=== PATIENT | female | born 1955 | race Caucasian/White ===

== ENCOUNTER 2017-11-14 14:21 | Inpatient (IN) | payer BC ==
[~2017-11-14 14:21] MED LIST: DIPHENHYDRAMINE HCL 50 MG/ML VIAL IVP ONE; FENTANYL PF 100MCG/2ML VIAL IV ONE; KETOROLAC 30 MG/ML VIAL IVP ONE; LIDOCAINE 2% MDV (20MG/ML) 20ML VIAL IV ONE; MIDAZOLAM HCL 2MG/2ML VIAL IV ONE; PROPOFOL 10 MG/ML VIAL IV ONE
[2017-11-14 15:48] LABS: BASO % 1.4 % (0-6); EOS % 4.4 % (0-6); GRAN % 60.7 % (47-80); HEMATOCRIT 36.1 % (35.0-47.0); HEMOGLOBIN 11.6 gm/dl (11.6-16.0); LYMPH % 24.4 % (16-45); MEAN CELL VOLUME 93.3 fl (81-97); MEAN CORPUSCULAR HGB CONC 32.1 g/dl (32-36); MEAN PLATELET VOLUME 10.4 fl (7.4-10.4); MONO % 9.1 % (0-9); PLATELET COUNT 291 K/uL (130-400); RED BLOOD COUNT 3.87 M/uL (3.80-5.40); RED CELL DISTRIBUTION WIDTH 13.7 % (11.5-14.5); WHITE BLOOD COUNT W/O DIFF 6.3 K/uL (4.2-12.2)
[2017-11-14] MEDS: INCRUSE INH SCH (16:25)
[2017-11-14] MEDS ORDERED: MORPHINE SULFATE 4MG/ML PREFILLED SYRINGE IVP PRN ×2 (17:13)
[2017-11-14] MEDS ORDERED: HYDROCODONE/APAP 5/325MG TABLET PO PRN (17:16)
[2017-11-14 17:59] LABS: ABO GROUP O; ANTIBODY SCREEN POSITIVE (NEGATIVE); RH TYPE POSITIVE
[2017-11-14] MEDS: HYDROCODONE/APAP 5/325MG TABLET PO PRN ×2 (18:05→20:23)
[2017-11-14 18:10] LABS: BLOOD UREA NITROGEN 13 mg/dL (8-23); CREATININE 0.6 mg/dL (0.5-0.9); EST GLOMERULAR FILTRATION RATE > 60 mL/min; GLUCOSE,RANDOM 90 mg/dL (74-109)
[2017-11-14 18:34] LABS: URINE APPEARANCE CLEAR; URINE BILIRUBIN NEGATIVE (NEGATIVE); URINE BLOOD NEGATIVE (NEGATIVE); URINE COLOR YELLOW; URINE GLUCOSE (UA) NEGATIVE (NEGATIVE); URINE KETONE NEGATIVE (NEGATIVE); URINE LEUKOCYTE ESTERASE NEGATIVE (NEGATIVE); URINE NITRITE NEGATIVE (NEGATIVE); URINE PROTEIN NEGATIVE (NEGATIVE)
[2017-11-15] MEDS: HYDROCODONE/APAP 5/325MG TABLET PO PRN (04:08)
[2017-11-15] MEDS ORDERED: RINGERS SOLUTION,LACTATED 1,000 ML IV ONE (11:00)
[2017-11-15] MEDS ORDERED: CELECOXIB 100 MG CAPSULE PO ONE (11:30)
[2017-11-15] MEDS ORDERED: ACETAMINOPHEN 1,000 MG/100 ML BTL IV ONE (11:30)
[2017-11-15] MEDS ORDERED: METOCLOPRAMIDE 10 MG TABLET PO ONE (11:30)
[2017-11-15] MEDS ORDERED: MECLIZINE 25 MG TABLET PO ONE (11:30)
[2017-11-15] MEDS ORDERED: FAMOTIDINE 20MG TABLET PO ONE (11:30)
[2017-11-15] MEDS: PATIENT OWN MED: ATORVASTATIN 40 MG PO SCH (11:41)
[2017-11-15] MEDS ORDERED: VANCOMYCIN HCL 1,000 MG in DEXTROSE 5 % IN WATER 250 ML IVPB ONE ×2 (12:00)
[2017-11-15] MEDS ORDERED: HYDROMORPHONE PF 1MG/ML **AMPULE IV ONE (13:01)
[2017-11-15] MEDS ORDERED: HYDROCODONE/APAP 5/325MG TABLET PO PRN ×2 (13:39)
[2017-11-15] MEDS ORDERED: ACETAMINOPHEN 325 MG TAB PO PRN (13:39)
[2017-11-15] MEDS ORDERED: BISACODYL 10 MG SUPP RC PRN (13:39)
[2017-11-15] MEDS ORDERED: KETOROLAC 30 MG/ML VIAL IVP PRN ×2 (13:39)
[2017-11-15] MEDS ORDERED: ZOLPIDEM TARTRATE 5 MG TABLET PO PRN (13:39)
[2017-11-15] MEDS ORDERED: ACETAMINOPHEN W/ CODEINE 300MG/30MG TABLET PO PRN ×2 (13:39)
[2017-11-15] MEDS ORDERED: ACETAMINOPHEN W/ CODEINE 300MG/60MG TABLET PO PRN ×2 (13:39)
[2017-11-15] MEDS ORDERED: HYDROMORPHONE HCL 2 MG/ML VIAL IM PRN ×2 (13:39)
[2017-11-15] MEDS ORDERED: METOCLOPRAMIDE HCL 10 MG/2 ML VIAL IVP PRN (13:39)
[2017-11-15] MEDS ORDERED: DIPHENHYDRAMINE HCL 25 MG CAPSULE PO PRN (13:39)
[2017-11-15] MEDS ORDERED: TRAMADOL HCL 50 MG TABLET PO PRN ×2 (13:39)
[2017-11-15] MEDS ORDERED: ONDANSETRON HCL IV 4 MG/2 ML VIAL IVP PRN (13:39)
[2017-11-15] MEDS ORDERED: AL HYDROX/MAG HYDROX 30ML UD PO PRN (13:39)
[2017-11-15] MEDS ORDERED: NALOXONE 0.4 MG/1 ML VIAL IVP PRN (13:39)
[2017-11-15] MEDS ORDERED: HYDROCODONE/APAP 7.5/325MG TABLET PO PRN ×2 (13:39)
[2017-11-15] MEDS ORDERED: PROMETHAZINE HCL 12.5 MG in 0.9 % SODIUM CHLORIDE 100ML 50 ML IVPB PRN (13:39)
[2017-11-15] MEDS ORDERED: MAGNESIUM HYDROXIDE 30 ML UDC PO PRN (13:39)
[2017-11-15] MEDS ORDERED: DEXTROSE 5 % AND 0.9 % NACL 1,000 ML IV PRN (14:00)
[2017-11-15] MEDS ORDERED: HYDROXYZINE PAMOATE 25 MG CAPSULE PO PRN (16:40)
--- NOTE | 2017-11-15 17:27 | Rehab Evaluation ---
Patient Information - Patient Information Diagnosis: L femoral neck facture Ordered Treatment: PT Evaluate and Treat Status: Initial Evaluation Surgery: Yes Date of Surgery: 11/15/17 Past Medical/Surgical Hx: PAST MEDICAL/SURGICAL HISTORY Past Surgical History hysterectomy, colonoscopy, 2 c-sections PMH - Respiratory Hx Respiratory Disorders Yes Hx Bronchitis Yes Hx Chronic Obstructive Yes: well controlled with inhaler Pulmonary Disease (COPD) Comment: former smoker PMH - Cardiovascular Hx Cardiovascular Disorders No Exercise Tolerance Good Hx Transient Ischemic Attacks Yes: see below (TIA) PMH - Neuro Hx Neurological Disorders Yes Hx Headaches Yes: daily Hx Transient Ischemic Attacks Yes: see below (TIA) Comment: diagnosed with "mini" strokes, recent mri PMH - GI Hx Gastrointestinal Disorders Yes Hx Gastroesophageal Reflux Yes: occassionally takes gaviscon PMH - Hx Genitourinary Disorders No Patient No Comment: s/p hyst PMH - Endocrine Hx Endocrine Disorders No Hx Diabetes No Hx Thyroid Disease No PMH - Musculoskeletal Hx Musculoskeletal Disorders Yes Hx Arthritis Yes Comment: current fracture left hip PMH - Psych Hx Psychiatric Problems No PMH - Hematology/Oncology Hx Hematology/Oncology No Disorders Premorbid Status: Detail (The patient was independent with mobility, hip had been painful since Aug.) Social History: Detail (The patient lives in a one story home with spouse with 3 stairs and no railing at one enterance and 3 or 4 steps with one railing at the front enterance. The patient's bathroom is equipped with a tub/shower combination with no grab bars and a standard toilet with no grab bars. The patient has a quad cane and was vended a walker with wheels. The patient and her were given information on toilet riser seats at a loan closet from [facility] counter caser. Patient's said they were trying to borrow a toilet riser from a relative.) Precautions: [place], Fall, Other (THR precautions.) - Time With Patient Total Time Spent With Patient (Min): 30 Treatment Procedures: Detail (Initial Evaluation) Subjective Information - Subjective Information Per Patient (The patient had no complaints of pain.) Objective Data - Mental Status Patient Orientation: Oriented x3 - Visual Perception Appears within normal limits for therapeutic activities - ROM Not within normal limits (The patient's L hip AROM is within total hip precautions.) - Strength/Tone Not within normal limits (The patient's R LE is generally 4+ to 5/5. The patient 's L LE was not tested due to s/p surgery.) - Bed Mobility Needs Assist (not tested secondary to patient felt she was not ready to sit up. Patient had been on inpatient floor for one hour.) - Transfers Needs Assist (Not assessed) - Sensation Intact (Intact B LE's to light touch.) - Gait Detail (Not assess. Patient did not feel ready to get up.) Therapy Assessment - Therapy Assessment Detail (The patient felt she was not ready to get up but did complete the THR exercises with assistance of PT to complete an ankle pump on the L.) Patient Education - Patient Education Teaching Topic: Exercise/Activity (THR exercises were completed 2-3 reps each including quad sets, hamstring sets, gluteal sets, hip abduction and ankle pumps with assist of PT. Heel slides were reviewed but not completed.), Precautions (THR precautions were reviewed.) Response: Return Demonstration Teaching Method: Discussion Teaching Recipient: Patient, Family Barriers To Learning: Age Related Problem List - Problem List Physical Therapy Problem List: Detail (1) Decreased L LE strength as to be expected following surgery. 2) Nonambulatory on levels and stairs following surgery 3) Assistance with bed mobility and transfers) Goals - Goals Physical Therapy Goals: 1)The patient will be independent with ambulation with appropriate assistive device WBAT on the L LE househod distances. 2) The patient will be independent with bed mobility safely following THR precautions. 3) The patient will be independent with all transfers. 4) The patient will ambulate on 3 steps, WBAT on the L LE with supervision for safety. 5) The patient will be independent with HEP , THR exercise and THR precautions. Prognosis - Prognosis Good (For return to home.) Plan - Plan Physical Therapy Plan: PT 1-2 times a day until all inpatient PT goals have been completed for bed mobility, transfer training, gait training and instruction in HEP and THR precautions.
[2017-11-15] MEDS: INCRUSE INH SCH (17:34)
[2017-11-15] MEDS: ONDANSETRON HCL IV 4 MG/2 ML VIAL IVP ONE ×2 (19:25→22:10)
--- NOTE | 2017-11-15 21:45 | Operative Note ---
DATE OF SURGERY: 11/15/2017 PREOPERATIVE DIAGNOSIS: Left displaced femoral neck fracture. Delayed presentation. POSTOPERATIVE DIAGNOSIS: Left displaced femoral neck fracture. Delayed presentation. OPERATION: Left total hip arthroplasty. SURGEON: Mike Martinez M.D. ANESTHESIA: Spinal. ANESTHESIA PROVIDER: Humberto Miles CRNA COMPLICATIONS: None. BLOOD LOSS: 150 mL. OPERATIVE FINDINGS: Unstable displaced femoral fracture, bone appearance grossly normal. COMPONENTS PLACED: 2 gram Vancomycin, cemented [employer]hew Synergy total hip arthroplasty system size 11 standard offset collared cemented Synergy stem with a 32 +4 mm Oxinium femoral head component, a 50 mm three-hole reflection acetabular shell component with one acetabular screw, two screw caps, a centrally threaded screw cap, and a 35 degree hooded high-crosslinked polyethylene liner. INDICATIONS FOR OPERATION: This is a 61-year-old female who just walked into my office yesterday with complaints of limb length discrepancy and limp and some pain in her thigh and groin area. She had had multiple falls previously, which eventually she related. She had a previous x-ray in August of the pelvis and lateral hip, in which there was no evidence of fracture. However, I took a new x -ray yesterday in the office and it showed a completely displaced femoral neck fracture. The patient does have a history of smoking in the past but quit about 20 years ago, no history of cancers. It is questionable that this may be pathologic, however, there is no gross appearance on the previous x-ray or current x-ray of any osteolytic lesion there and she was scheduled for surgery after being admitted to [facility] last night. I explained to the patient and the patient's family the risks and benefits in great detail for her diagnosis and procedures including but not limited to; infection, nerve injury, vessel injury, persistent pain, persistent numbness and tingling in her hip, periprosthetic fracture, need for resection arthroplasty should the components become infected or loosened, limb length discrepancy, need for anticoagulation to prevent blood clots and risks associated with these medications and need for further procedures and all of her questions were answered, the rehab and course were outlined and she agreed to proceed. PROCEDURE: The patient was brought to the O.R. and placed in the right lateral decubitus position. The left hip and lower extremity were prepped and draped in a sterile fashion, prepped again with ChloraPrep after it was draped. Intraoperative time-out was performed. Next, the hip was re-prepped again with ChloraPrep. A posterior approach was marked over the hip using the incision marking template off the tip of the trochanter and infiltrated with 0.5% Marcaine with Epinephrine in a mini- incision approach. Next, we infiltrated the skin with 0.5% Marcaine with Epinephrine. Skin and subcutaneous tissues were dissected down. The gluteal fascia was split longitudinally. Subgluteal plane was bluntly dissected. A self-retainer brought in. We dissected down to the short external rotators and released them and tagged them with #2 Vicryl. I identified the sciatic nerve and took care to protect the sciatic nerve at all times with the rotators. Next, we incised the capsule, released it superiorly and inferiorly, and dislocated the femoral head. It was obviously mobile at the fracture site, the area was moving freely and dislocated with the neck held on with some periosteum. The head was cut and removed about 1 cm above the lesser trochanter. We sent the head to Pathology. There wasn't any gross appearance at the fracture site of abnormal bone. Next, we inserted the boxed osteotome and then inserted reamers, working in 1 mm increments up to a size 11. We stopped there, broached and 9 and a 10, calcar planed then an 11, had a good fit and we stopped there. Attention was turned to the acetabulum. We released the capsule anteriorly, placed a Cobra retractor there, placed an inferior acetabular retractor, released some of the capsule and labrum around the periphery. We started reaming in 1 mm increments in 45 degrees inclination and 20 degrees of anteversion starting with a 43 mm reamer until we reamed up to our minimum size acetabulum that was available here, a 50 mm acetabulum. Therefore, we reamed to a 49. We initially planned on using a 48, however, that was not available. We then inserted the trial 50 shell with a helicopter guide, impacted down to the medial wall in 45 degrees inclination and 20 degrees of anteversion and it fit nicely. We changed gloves, brought in a clean sheet and irrigated copiously and then impacted down the real three-hole acetabular shell component, again using the helicopter guide in 45 degrees inclination to 20 degrees of anteversion. Next, we drilled the posterior superior central quadrant screw hole, measured for 40 mm screw, inserted the screw and had excellent purchase and compressed the acetabulum down nicely medially to the wall. Next, we placed the trial liner and we a trial reduction and range of motion. The best combination of range of motion, stability and mu-ism of her leg lengths, which was short, over 1 inch prior to surgery, with a standard offset 32 +4 mm high femoral head component. This allowed for flexion to 90, internal rotation to 70 to 80 before the hip would attempt to dislocate against, and symmetric leg lengths with the knee, patella, and heel lining up, and stability with extension in external rotation, good abductor tensioning with inferior anterior distraction in the sizes that we used. Next, we re-dislocated the hip, removed all trial components, and irrigated the acetabular shell copiously. We placed two screw caps, a centrally threaded screw cap and impacted down the real high crosslinked polyethylene liner with the 35 degree mahan in the posterior/superior quadrant. Next, we irrigated the femoral canal. We mixed cement and then placed a cement restrictor distally and injected the cement in 3rd generation cement technique. We removed the suction catheter and then impacted down the real femoral stem, again, in 15 degrees of anteversion until the collar was flush with the medial calcar. We held it there until cement hardened. We cleaned and dried the trunnion and impacted down the real Oxinium femoral head component. We re-reduced the hip. Final range of motion and stability were the same. We irrigated copiously. We repaired the short external rotators to the abductors using #2 running Vicryl stitch. Irrigated again. We closed the gluteal fascia with a running #2 Quill. Previously, we injected the deep capsule , periosteum, gluteal, and abductors with 0.5% Marcaine with Epinephrine, 2 grams of Tranexamic Acid, and Exparel mixture. We closed the skin with 2-0 Vicryl subcutaneous and then reapproximated the skin edges with ZipLine with TinCoBen. Abduction pillows. Post-op x-ray revealed good fit and orientation of components. The patient tolerated the procedures well. No intraoperative complications. All sponge, needle and blade counts were correct. Recovery stable, neurovascularly intact. She will be sent back to the Floor with pain control, IV antibiotics, and likely discharged home tomorrow. cc: Primary Care Doctor JOB NUMBER: [id number] MTDD
[2017-11-15] MEDS: DOCUSATE SODIUM 100 MG CAPSULE PO SCH (22:17)
[2017-11-15] MEDS: FERROUS SULFATE 325 MG TAB PO SCH (22:17)
[2017-11-15] MEDS: VANCOMYCIN HCL 1,000 MG in DEXTROSE 5 % IN WATER 250 ML IVPB SCH ×2 (22:35)
[2017-11-16 06:16] LABS: HEMATOCRIT 31.1 % (35.0-47.0); HEMOGLOBIN 9.9 gm/dl (11.6-16.0)
[2017-11-16] MEDS: FERROUS SULFATE 325 MG TAB PO SCH (09:12)
[2017-11-16] MEDS: DOCUSATE SODIUM 100 MG CAPSULE PO SCH (09:14)
[2017-11-16] MEDS: PATIENT OWN MED: ATORVASTATIN 40 MG PO SCH (09:15)
[2017-11-16] MEDS ORDERED: RIVAROXABAN 10 MG TABLET PO SCH (10:00)
[2017-11-16] MEDS ORDERED: CELECOXIB 100 MG CAPSULE PO SCH (10:00)
--- NOTE | 2017-11-16 11:51 | Physical Therapy Tx Note ---
Physical Therapy Tx Note - Treatment Note Tolerated: Good Total Time Spent With Patient: 50 Physical Therapy Tx Note: Detail (Pt in bed upon arrival, awake/alert, cooperative for therapy. Was nauseated through the night, didn't eat much breakfast, but not nauseated now. Required min assist for L LE to get to sitting at edge of bed, sat for several minutes, not dizzy/lightheaded. Reviewed WOLF precautions for posterior approach. VCs for sit/stand technique, WBAT status, gait w/front wheeled walker. Sit/stand w/SBA to front wheeled walker, ambulated from bedside to PACU doors and back to bedside (about 240 feet total), w/CGA/SBA. VCs for reaching back to bed/seat, min assist for LE's back into bed, used trapeze to scoot up in bed. Performed 10 reps each of ankle pumps, isometric quads, isometric hamstrings, isometric gluts, heel slides , and assisted hip abduction. Discussed tub bench transfers, assistive equipment for dressing, activities she can do at home. Discussed that home therapy will be going over these as well.) Physical Therapy Problem List: Detail (1) Decreased L LE strength as to be expected following surgery. 2) Nonambulatory on levels and stairs following surgery 3) Assistance with bed mobility and transfers) Physical Therapy Goals: 1)The patient will be independent with ambulation with appropriate assistive device WBAT on the L LE househod distances. 2) The patient will be independent with bed mobility safely following THR precautions. 3) The patient will be independent with all transfers. 4) The patient will ambulate on 3 steps, WBAT on the L LE with supervision for safety. 5) The patient will be independent with HEP , THR exercise and THR precautions. Prognosis: Good Physical Therapy Plan: Will see pt this afternoon for stair training and continued review of WOLF precautions and home exercise program.
[2017-11-16] MEDS: VANCOMYCIN HCL 1,000 MG in DEXTROSE 5 % IN WATER 250 ML IVPB SCH ×2 (12:14)
--- NOTE | 2017-11-16 13:13 | Physical Therapy Tx Note ---
Physical Therapy Tx Note - Treatment Note Tolerated: Good Total Time Spent With Patient: 20 Physical Therapy Tx Note: Detail (Pt in bed upon arrival, awake/alert, cooperative for therapy. Independent w/bed mobility w/reminder for WOLF precautions. Sit/stand transfer to front wheeled walker independently, ambulated to bathroom w/SBA, independently transferred off of commode and to sink, out of bathroom. Ambulated from bedside to stairwell, descended/ascended three steps w/VCs for technique and CGA; pt's observed and verbalized good understanding. Ambulated back to bed (total about 100 feet) w/SBA. Discussed truck transfers; pt has already been doing appropriate transfer by ascending into truck backward, lifting w/R LE and hand holds on truck. Demonstrates good understanding of HEP, anticipating home therapy to assist with practical training in home environment.) Physical Therapy Problem List: Detail (1) Decreased L LE strength as to be expected following surgery. 2) Nonambulatory on levels and stairs following surgery 3) Assistance with bed mobility and transfers) Physical Therapy Goals: 1)The patient will be independent with ambulation with appropriate assistive device WBAT on the L LE househod distances - met. 2) The patient will be independent with bed mobility safely following THR precautions - met. 3) The patient will be independent with all transfers - met. 4) The patient will ambulate on 3 steps, WBAT on the L LE with supervision for safety - met. 5) The patient will be independent with HEP , THR exercise and THR precautions - met. Prognosis: Good Physical Therapy Plan: Pt has met all goals outlined for inpatient physical therapy; she is discharged from PT at this time, anticipate discharge home this afternoon.
[2017-11-16] MEDS ORDERED: BUPIVACAINE LIPOSOME 266MG/20ML VIAL IV ONE (14:49)
[2017-11-16] MEDS ORDERED: VANCOMYCIN HCL 1 GM VIAL IVPB ONE ×2 (14:49)
[2017-11-16] MEDS ORDERED: BUPIVACAINE 0.5% W/EPI MPF 30 ML VIAL IVP ONE (14:49)
[2017-11-16] MEDS ORDERED: TRANEXAMIC ACID 1,000 MG/10 ML ML IV ONE (14:49)
--- NOTE | 2017-11-17 09:33 | RADIOLOGY REPORT ---
DATE: 11/15/2017. EXAM: SINGLE VIEW OF THE LEFT HIP. HISTORY: Postoperative. TECHNIQUE: Single AP view of the left hip. COMPARISON: None. FINDINGS: Status post total left hip arthroplasty. Soft tissue gas is likely postoperative in nature. No gross complicating process. Osteopenia. IMPRESSION: LEFT HIP ARTHROPLASTY CHANGE. NO GROSS COMPLICATING PROCESS. JOB NUMBER: [id number] MTDD
--- NOTE | 2017-11-18 12:39 | Occupational Therapy Tx Note ---
Occupational Therapy Tx Note - Treatment Note Occupational Therapy Treatment Note: Detail (After discussion with Physical therapy, and notification to director of social media marketing, it was decided PT would review drsg with patient due to the suddenness of this sx and no OT availability. These techniques will be followed up by home OT.)
--- NOTE | 2017-11-18 20:17 | Discharge Summary ---
DATE: 11/18/17 PRE-OP DIAGNOSIS: DISPLACED LEFT FEMORAL NECK FRACTURE. POST-OP DIAGNOSIS: DISPLACED LEFT FEMORAL NECK FRACTURE. PROCEDURE: TOTAL HIP ARTHROPLASTY. SURGEON: JUAN PEARCE M.D. ANESTHESIA: SPINAL. ANESTHESIA PROVIDER: JOSE JUAN GELLER CRNA. COMPLICATIONS: NONE. BLOOD LOSS: 200 ML. OPERATIVE FINDINGS: A displaced unstable femoral neck fracture. HOSPITAL COURSE: The patient was admitted the day of the procedure. He tolerated it well. Post-op, she was afebrile, vital signs are stable, neurovascularly intact. Her dressings were clean, dry, and intact. She had Xarelto for DVT prophylaxis. Pain medication, antibiotics, and continue her home medications and was sent to the Floor. Hospital course went uncomplicated. She had acute asymptomatic post-op blood loss anemia. Hemoglobin was 9.9 on post-op day #1. She did well in therapy and was discharged home. She will have home therapy nurse from [place], follow- up in two weeks, and continue pre-admission medications plus Xarelto for a total of two weeks, pain pills, iron. cc: Dr. Gordon JOB NUMBER: [id number] MTDD
== END 2017-11-16 14:50 | disposition home health service (06) | DRG 470 ==
LOC: MEDSURG 14:21
PROVIDERS: ADMIT Orthopaedic Surgery; ATTEND Orthopaedic Surgery
PROC: 0SRB069 Replacement of Left Hip Joint with Oxidized Zirconium on Polyethylene Synthetic Substitute, Cemented, Open Approach (ICD-10-PCS; principal; 2017-11-14)
DX: S72.002A Fracture of unspecified part of neck of left femur, initial encounter for closed fracture (principal); E78.00 Pure hypercholesterolemia, unspecified
CPT/HCPCS: 80048; 81003; 85014; 85018; 85025; 86850; 86900; 86901; 93005; 94640; J1170; J1200; J1885; J2405; J2765; J7060; J7120